=== PATIENT | female | born 1955 ===

== ENCOUNTER 2021-07-20 01:57 | Outpatient (CLI) | payer MEDICARE, BC, SELFPAY ==
--- NOTE | 2021-07-20 06:45 | DI.MRI_ITS ---
Exam(s) MR IAC BRAIN WO/W EXAM: MR IAC BRAIN WO/W CLINICAL HISTORY: r>l sn hearing loss,impairment of speech,h90.3,h93.299 TECHNIQUE: Multiplanar multisequence MRI of the brain was performed. Both noninfused and contrast i nfused sequences were performed. IV Contrast injected was 13 cc Dotarem. Dedicated IAC sequences performed, including a submillimeter slice sequence through the internal tyron tory canals. COMPARISON: No exams were available for comparison FINDINGS: INTERNAL AUDITORY CANALS: There is no evidence of mass in the cerebellopontine angles nor evidence of intra canalicular mass. Seventh and 8th nerves appear unremarkable within the IAC's. Visualized 5t h-trigeminal nerves also appear unremarkable CEREBRAL PARENCHYMA: No evidence of intracranial hemorrhage, mass effect nor shift of midline structu re. No extraaxial fluid collections. Ventricles are not enlarged nor shifted. There is no significant focal signal abnormality in the cerebellar hemispheres nor within the ej, m idbrain, and thalami. The FLAIR images reveal a few small nonspecific white matter signal foci in the periventricular and s ubcortical white matter, not associated with hemorrhage, restricted diffusion, surrounding edema, nor enhancement. No abnormal signal on diffusion imaging to suggest restricted diffusion No abnormal signal on susceptibility weighted image to suggest micro hemorrhage There are no ring enhancing lesions in the brain. There is no abnormal meningeal enhancement. PITUITARY GLAND: No mass nor parasellar abnormality. No obvious abnormality in the cavernous sinuses. FLOW VOIDS: The expected flow void are noted. No evidence of obvious aneurysm nor obvious vascular ma lformation. PARANASAL SINUSES: The visualized paranasal sinuses appear unremarkable. ORBITS: No obvious abnormal findings. IMPRESSION: 1. No significant intracranial findings on this MRI scan of the brain. 2. There are few small nonspecific white matter signal foci in the periventricular and subcortical wh ite matter, the largest measuring 3 millimeters. These are nonspecific and not associated with hemor rhage, surrounding edema, enhancement, nor abnormal signal on diffusion imaging to suggest recent isc hemic events. 3. No evidence of mass in the cerebellopontine angles and no evidence of intra-canalicular acoustic n euroma-schwannoma. DATA REPOSITORY:
[2021-07-20] MEDS: Gadoterate meglumine 20 ML VIAL 13 ML IVP (09:30)
[2021-07-20] MEDS: Normal Saline Flush 10 ML SYR IVP (09:32)
== END 2021-07-20 02:17 ==
PROVIDERS: PCP Nurse Practitioner Family; Visit Provider Otolaryngology
DX: H90.3 Sensorineural hearing loss, bilateral (principal); R47.89 Other speech disturbances; H93.293 Other abnormal auditory perceptions, bilateral
CPT/HCPCS: 70553